=== PATIENT | male | born 1975 | race Two or more races ===

== ENCOUNTER 2019-03-30 01:15 | Emergency (ER) | payer MEDICAID ==
[~2019-03-30] VITALS: Ht 180.3 cm; Wt 136.1 kg
[2019-03-30] MEDS ORDERED: HALOPERIDOL LACTATE 5 MG/ML INJ VIAL IM ONE (01:45)
[2019-03-30] MEDS ORDERED: diphenhdrAMINE HCL 50 MG/1 ML VL IM ONE (01:45)
[2019-03-30] MEDS ORDERED: LORazepam 2MG/ML-1ML VIAL IM ONE (01:45)
[2019-03-30 02:11] LABS: Basophils # (auto) 0 uL; Basophils % (auto) 0.2 % (0.0-2.0); Eosinophils # (auto) 0.1 uL; Hematocrit 45.1 % (41.0-53.0); Hemoglobin 16.1 g/dL (13.5-17.5); Lymphocytes # (auto) 2.9 uL; Lymphocytes % (auto) 24.9 % (10.0-50.0); Mean Corpuscular Hemoglobin 31.6 pg (28.0-32.0); Mean Corpuscular Hgb Conc. 35.7 g/dL (32.0-36.0); Mean Corpuscular Volume 88.5 fL (80.0-100.0); Monocytes # (auto) 0.9 uL; Monocytes % (auto) 7.5 % (0.0-12.0); Neutrophils # (auto) 7.7 uL; Neutrophils % (auto) 66.4 % (37.0-80.0); Nucleated Red Blood Cells % 0.1 %; Platelet Count (auto) 331 10^3/uL (140-450); Red Cell Distribution Width 13.7 % (11.8-14.3); White Blood Cell 11.5 10^3/uL (4.4-10.8)
[2019-03-30 02:28] LABS: Salicylate < 1.7 mg/dL (2.8-20.0)
[2019-03-30 02:30] LABS: Alanine Aminotransferase 66 U/L (16-61); Albumin 3.4 g/dL (3.4-5.0); Anion Gap 13 (5-15); BUN/Creatinine Ratio 8.3; Blood Alcohol < 3.0 mg/dL (0-5); Blood Urea Nitrogen 10 mg/dL (7-18); Calcium 8.9 mg/dL (8.5-10.1); Carbon Dioxide 17 mmol/L (21-32); Chloride 107 mmol/L (98-107); GFR African American 85 mL/min; GFR Non-African American 70 mL/min; Glucose 293 mg/dL (74-106); Potassium 3.3 mmol/L (3.5-5.1); Sodium 137 mmol/L (136-145)
[2019-03-30 02:39] LABS: Alkaline Phosphatase 117 U/L (45-117); Aspartate Aminotransferase 31 U/L (15-37); Bilirubin, Total 0.7 mg/dL (0.2-1.0); Total Protein 7.9 g/dL (6.4-8.2)
[2019-03-30 02:44] LABS: Alcohol, Urine < 3.0 mg/dL (0-5); Amphetamine Screen, Urine NEGATIVE (NEGATIVE); Barbiturate Scree,Urine NEGATIVE (NEGATIVE); Benzodiazephine Screen, Urine NEGATIVE (NEGATIVE); Cannabinoid Screen, Urine NEGATIVE (NEGATIVE); Cocaine Screen, Urine NEGATIVE (NEGATIVE); Opiate Scree,Urine NEGATIVE (NEGATIVE); Phencyclidine Screen, Urine NEGATIVE (NEGATIVE); Urine Bacteria FEW /hpf (None Seen); Urine Blood Negative /uL (Negative); Urine Hyaline Cast FEW /lpf (0 - 2); Urine Mucus FEW (None Seen); Urine WBC 1 /hpf (0 - 3)
[2019-03-30 02:46] LABS: Acetaminophen < 2.0 ug/mL (10-30)
[2019-03-30 04:01] VITALS: BP 119/89
== END 2019-03-30 07:06 | disposition home or self-care (01) ==
LOC: EDBD 01:15 → ER 01:15
DX: F41.0 Panic disorder [episodic paroxysmal anxiety] (principal); E11.65 Type 2 diabetes mellitus with hyperglycemia; E87.6 Hypokalemia
CPT/HCPCS: 36415; 80053; 80307; 80320; 80329; 81001; 85025; 96372; 99284; J1200; J1630; J2060

== ENCOUNTER 2022-05-21 01:03 | Inpatient (IN) | payer BC, MEDICAID ==
[~2022-05-21] VITALS: Ht 190.5 cm; Wt 167.8 kg
[2022-05-21 02:34] LABS: Urine Bacteria NONE SEEN /hpf (None Seen); Urine Blood Negative /uL (Negative); Urine Mucus FEW (None Seen); Urine Specific Gravity 1.037 (1.001-1.035); Urine WBC 2 /hpf (0 - 3)
[2022-05-21 02:40] LABS: Basophils # (auto) 0.1 10 ^3/uL (0-0.2); Basophils % (auto) 0.5 % (0.0-2.0); Eosinophils # (auto) 0.2 10 ^3/uL (0-0.8); Eosinophils % (auto) 0.9 % (0.0-7.0); Hematocrit 44.5 % (41.0-53.0); Hemoglobin 14.9 g/dL (13.5-17.5); Lymphocytes # (auto) 1.4 10 ^3/uL (0.4-5.4); Lymphocytes % (auto) 7.5 % (10.0-50.0); Mean Corpuscular Hemoglobin 29.3 pg (28.0-32.0); Mean Corpuscular Hgb Conc. 33.5 g/dL (32.0-36.0); Mean Corpuscular Volume 87.5 fL (80.0-100.0); Monocytes # (auto) 1.2 10 ^3/uL (0-1.3); Monocytes % (auto) 6.2 % (0.0-12.0); Neutrophils # (auto) 15.9 10 ^3/uL (1.6-8.6); Neutrophils % (auto) 84.9 % (37.0-80.0); Red Blood Cells 5.09 10^6/uL (4.5-5.90); Red Cell Distribution Width 13.6 % (11.8-14.3); White Blood Cell 18.7 10^3/uL (4.4-10.8)
[2022-05-21 02:41] LABS: BUN/Creatinine Ratio 14.4; Calcium 8.4 mg/dL (8.5-10.1); Potassium 3.5 mmol/L (3.5-5.1)
[2022-05-21 02:44] LABS: Bilirubin, Total 0.6 mg/dL (0.2-1.0); Total Protein 7.2 g/dL (6.4-8.2)
[2022-05-21] MEDS ORDERED: cefTRIAXone 1GM/50ML D5W 50 ML IV ONE (09:00)
[2022-05-21] MEDS ORDERED: SODIUM CHLORIDE 0.9% 1,000 ML IV ONE ×2 (09:00)
[2022-05-21] MEDS ORDERED: metroNIDAZOLE 500MG/100ML 100 ML IV ONE (09:00)
[2022-05-21] MEDS ORDERED: DOCUSATE SOD 100 MG CAP PO PRN (10:15)
[2022-05-21] MEDS ORDERED: DEXTROSE (50%) 50ML SYRG IV PRN (10:15)
[2022-05-21] MEDS ORDERED: MORPHINE SULFATE INJ 2 MG/ml SYRG IV PRN (10:15)
[2022-05-21] MEDS ORDERED: ONDANSETRON HCL 4 MG/2 ML VIAL IV PRN (10:15)
[2022-05-21] MEDS ORDERED: hydrALAZINE HCL 20 MG/ML VL IV PRN (10:45)
[2022-05-21] MEDS: SODIUM CHLORIDE 0.9% 1,000 ML IV SCH ×2 (11:45→18:34)
[2022-05-21] MEDS: ACCU-CHEK COMFORT CURVE STRIP VI SCH ×3 (12:26→22:15)
[2022-05-21] MEDS: InsuLIN REG 1unit/0.01ml Soln (100units/ml) SC SCH ×2 (12:32→16:39)
[2022-05-21] MEDS: metroNIDAZOLE 500MG/100ML 100 ML IV SCH ×2 (13:37→22:15)
[2022-05-21 14:24] VITALS: BP 149/83
[2022-05-21] MEDS ORDERED: INFLUENZA QUAD 2022-2023 0.5 ML SYRG IM ONE (14:45)
[2022-05-21] MEDS ORDERED: PNEUMOCOCCAL VACC POLYS 25 MCG/0.5 ML VIAL IM ONE (14:45)
[2022-05-21] MEDS ORDERED: METF-370 PO (14:56)
[2022-05-21] MEDS ORDERED: GLIP5TAB12 PO (14:58)
[2022-05-21] MEDS ORDERED: GABA300C10 PO (14:58)
[2022-05-21] MEDS ORDERED: LISI-275 PO (14:58)
[2022-05-21] MEDS ORDERED: ATOR20TA50 PO (14:58)
[2022-05-21 16:42] VITALS: BP 143/49
[2022-05-21 20:00] VITALS: BP 139/91
[2022-05-21 22:00] VITALS: BP 139/91
[2022-05-21] MEDS ORDERED: InsuLIN REG 1unit/0.01ml Soln (100units/ml) SC SCH (22:00)
[2022-05-22] MEDS: SODIUM CHLORIDE 0.9% 1,000 ML IV SCH ×2 (03:52→11:15)
[2022-05-22 05:00] VITALS: BP 137/79
[2022-05-22] MEDS: metroNIDAZOLE 500MG/100ML 100 ML IV SCH ×2 (05:53→14:01)
[2022-05-22 06:30] LABS: Potassium 3.5 mmol/L (3.5-5.1)
[2022-05-22 06:35] LABS: Albumin 2.5 g/dL (3.4-5.0); BUN/Creatinine Ratio 14.5; Calcium 7.7 mg/dL (8.5-10.1)
[2022-05-22 06:39] LABS: Bilirubin, Total 0.5 mg/dL (0.2-1.0)
[2022-05-22] MEDS: InsuLIN REG 1unit/0.01ml Soln (100units/ml) SC SCH ×3 (06:59→17:28)
[2022-05-22 07:00] LABS: Basophils # (auto) 0 10 ^3/uL (0-0.2); Basophils % (auto) 0.6 % (0.0-2.0); Eosinophils # (auto) 0.3 10 ^3/uL (0-0.8); Eosinophils % (auto) 3.6 % (0.0-7.0); Hematocrit 39.1 % (41.0-53.0); Hemoglobin 13.5 g/dL (13.5-17.5); Lymphocytes # (auto) 2.1 10 ^3/uL (0.4-5.4); Lymphocytes % (auto) 27.7 % (10.0-50.0); Mean Corpuscular Hemoglobin 30.1 pg (28.0-32.0); Mean Corpuscular Hgb Conc. 34.5 g/dL (32.0-36.0); Mean Corpuscular Volume 87.2 fL (80.0-100.0); Monocytes # (auto) 0.6 10 ^3/uL (0-1.3); Neutrophils # (auto) 4.6 10 ^3/uL (1.6-8.6); Neutrophils % (auto) 60.1 % (37.0-80.0); Nucleated Red Blood Cells % 0.1 %; Red Blood Cells 4.49 10^6/uL (4.5-5.90); Red Cell Distribution Width 13.2 % (11.8-14.3); White Blood Cell 7.7 10^3/uL (4.4-10.8)
[2022-05-22] MEDS: ACCU-CHEK COMFORT CURVE STRIP VI SCH ×3 (07:01→17:14)
[2022-05-22 09:00] VITALS: BP 153/95
[2022-05-22] MEDS ORDERED: cefTRIAXone 1GM/50ML D5W 50 ML IV SCH (09:00)
[2022-05-22] MEDS ORDERED: ENOXAPARIN SOD 40 MG/0.4 ML SYRINGE SC SCH (10:00)
[2022-05-22] MEDS ORDERED: PANTOPRAZOLE 40 MG/10 ML VIAL INJ IV SCH (10:00)
[2022-05-22 13:00] VITALS: BP 137/78
[2022-05-22 16:08] VITALS: BP 137/78
[2022-05-25 14:38] LABS: Hepatitis C Antibody Negative (Negative)
== END 2022-05-22 17:42 | disposition home or self-care (01) | DRG 445 ==
LOC: ER 01:03 → OVERFLOW 10:19 → CENTRAL 13:14
PROVIDERS: ADMIT Nurse Practitioner Family; ATTEND Student in an Organized Health Care Education/Training Program
PROC: 3E02340 Introduction of Influenza Vaccine into Muscle, Percutaneous Approach (ICD-10-PCS; principal; 2022-05-22)
PROC: 3E0234Z Introduction of Serum, Toxoid and Vaccine into Muscle, Percutaneous Approach (ICD-10-PCS; 2022-05-22)
DX: K80.70 Calculus of gallbladder and bile duct without cholecystitis without obstruction (principal); E44.1 Mild protein-calorie malnutrition; Z68.42 Body mass index [BMI] 45.0-49.9, adult; E66.9 Obesity, unspecified; E78.5 Hyperlipidemia, unspecified; E86.0 Dehydration; I10 Essential (primary) hypertension; R74.01 Elevation of levels of liver transaminase levels; Z20.822 Contact with and (suspected) exposure to COVID-19; K57.90 Diverticulosis of intestine, part unspecified, without perforation or abscess without bleeding; M17.10 Unilateral primary osteoarthritis, unspecified knee; Z82.49 Family history of ischemic heart disease and other diseases of the circulatory system; Z83.3 Family history of diabetes mellitus; Z79.899 Other long term (current) drug therapy; Z23 Encounter for immunization
CPT/HCPCS: 36415; 71045; 74176; 76705; 80053; 81001; 82962; 83605; 83690; 84484; 85025; 86803; 87040; 87340; 87426; 93005; 96365; 96367; 96372; C9113; G0378; J0696; J1815; J3490

== ENCOUNTER 2024-03-02 18:40 | Emergency (ER) | payer BC, MEDICAID ==
[~2024-03-02] VITALS: Ht 182.9 cm; Wt 104.9 kg
[~2024-03-02 18:40] MED LIST: ATOR20TA50 PO; GABA-1250 PO; GLIP5TAB21 PO; LISI-275 PO; METF-370 PO
[2024-03-02] MEDS: LORazepam 0.5 MG TAB PO ONE (20:37)
[2024-03-03 08:00] VITALS: PULSE 77; RESP 16; O2SAT 97
[2024-03-05] VITALS: PULSE 88; RESP 18; O2SAT 96
[2024-03-05 09:40] VITALS: PULSE 71; RESP 17; O2SAT 95
[2024-03-06 04:15] VITALS: TEMP 97.9
[2024-03-06 08:09] VITALS: BP 151/53; PULSE 75; RESP 18; O2SAT 94
== END 2024-03-06 09:24 | disposition home or self-care (01) ==
LOC: EDBD 18:40 → EDUNIT# 18:40 → ER 18:40
DX: F41.9 Anxiety disorder, unspecified (principal); E11.9 Type 2 diabetes mellitus without complications; I10 Essential (primary) hypertension; Z59.00 Homelessness unspecified